=== PATIENT | female | born 1990 | race Caucasian/White ===

== ENCOUNTER 2017-09-15 13:36 | Emergency (ER) | payer OTHER ==
[~2017-09-15] VITALS: Ht 170.2 cm; Wt 64.9 kg
[~2017-09-15 13:36] MED LIST: CIPRO500 MG PO; KEFLEX500 MG PO; NOHOMEMEDS; PERCOCET 5/31 TABLET PO
[2017-09-15] MEDS ORDERED: VALIUM5 MG PO (17:17)
[2017-09-15] MEDS ORDERED: NAPROXEN500 MG PO (17:17)
[2017-09-15] MEDS ORDERED: PERCOCET 5/31 TABLET PO (17:17)
[2017-09-15 17:38] VITALS: BP 94/63
== END 2017-09-15 17:49 | disposition home or self-care (01) ==
LOC: EME 13:36
DX: S39.012A Strain of muscle, fascia and tendon of lower back, initial encounter (principal); M54.16 Radiculopathy, lumbar region; X50.9XXA Other and unspecified overexertion or strenuous movements or postures, initial encounter; Y93.89 Activity, other specified; Z88.7 Allergy status to serum and vaccine
CPT/HCPCS: 72100; 99281; 99285; J1100; J1885; J2060; J3010

== ENCOUNTER 2017-09-17 10:52 | Emergency (ER) | payer OTHER ==
[~2017-09-17] VITALS: Ht 170.2 cm; Wt 65.8 kg
[~2017-09-17 10:52] MED LIST changes: +NAPROXEN500 MG PO; +VALIUM5 MG PO
[2017-09-17 15:58] LABS: HEMATOCRIT 41.2 % (36.0-46.0); MCH 33.6 PG (29.0-34.0); MCV 98.8 FL (83-99); PLATELET COUNT 236 K/uL (156-360); RBC DIS.WIDTH-CV 12.5 % (11.8-14.6); RBC DIS.WIDTH-SD 45.7 % (39-53); RED BLOOD COUNT 4.17 M/uL (3.80-5.20); WHITE BLOOD COUNT 9.2 K/uL (4.1-10.2)
[2017-09-17 16:07] LABS: ALBUMIN 4.2 g/dL (3.2-4.8); CHLORIDE 106 mEq/L (99-109); SODIUM 142 mEq/L (136-147)
[2017-09-17 16:10] LABS: GLUCOSE 86 mg/dL (70-99); TOTAL PROTEIN 6.6 g/dL (6.4-8.3)
[2017-09-17 16:11] LABS: APPEARANCE CLOUDY ((CLEAR)); BILIRUBIN NEGATIVE; BLOOD NEGATIVE; COLOR YELLOW ((YELLOW)); GLUCOSE (STRIP) NEGATIVE; KETONES NEGATIVE; LEUKOCYTES NEGATIVE; NITRITE NEGATIVE; PROTEIN (STRIP) NEGATIVE; SPECIFIC GRAVITY 1.021 (1.000-1.030); UROBILINOGEN 0.2 MG/DL (0.2-1.0)
[2017-09-17 16:12] LABS: TOTAL BILIRUBIN 0.3 mg/dL (0.0-1.0)
[2017-09-17 16:13] LABS: ALKALINE PHOSPHATASE 50 IU/L (3-129); CREATININE 0.7 mg/dL (0.6-1.3); GFR ESTIMATE (CALCULATED) > 59 mL/min/
[2017-09-17 16:14] LABS: UREA NITROGEN (BUN) 10 mg/dL (9-23)
[2017-09-17 16:15] LABS: AST (GOT) 21 IU/L (2-34)
[2017-09-17 16:16] LABS: ALT (GPT) 27 IU/L (3-49)
[2017-09-17 16:22] LABS: QUANTITATIVE HCG < 4.0 MIU/ML
[2017-09-17 17:07] LABS: BACTERIA 3+ /HPF; EPITHELIAL CELLS 4+ /HPF; MUCUS 2+ /LPF; RED BLOOD CELLS 0-5 /HPF (0-5); UCUL ADDED? YES; WHITE BLOOD CELLS 0-5 /HPF (0-5)
[2017-09-17] MEDS ORDERED: MEDROL DOSEPAK4 MG PO (17:52)
[2017-09-17 18:36] VITALS: BP 118/68
== END 2017-09-17 18:37 | disposition home or self-care (01) ==
LOC: EME 10:52
PROVIDERS: Physician Assistant
DX: M54.40 Lumbago with sciatica, unspecified side (principal); F17.200 Nicotine dependence, unspecified, uncomplicated; Z97.5 Presence of (intrauterine) contraceptive device; Z88.7 Allergy status to serum and vaccine
CPT/HCPCS: 72131; 80053; 81003; 84702; 85027; 87086; 99281; 99283